=== PATIENT | male | born 1995 | race Hispanic/Latino ===

== ENCOUNTER 2019-08-25 03:11 | Emergency (ER) | payer MEDICAID, SELFPAY ==
[~2019-08-25] VITALS: Ht 157.5 cm; Wt 50.9 kg
[2019-08-25] MEDS ORDERED: NS 1,000 ML IV ONE ×2 (03:45→07:30)
[2019-08-25 09:45] VITALS: BP 119/55
== END 2019-08-25 10:26 | disposition home or self-care (01) ==
LOC: M ED 03:11 → EDBD 03:11 → M ED 10:26
DX: F10.120 Alcohol abuse with intoxication, uncomplicated (principal); F19.10 Other psychoactive substance abuse, uncomplicated
CPT/HCPCS: 96360; 96361; 99284; G0480